=== PATIENT | female | born 1955 | race Two or more races ===

== ENCOUNTER 2022-08-03 04:18 | Day surgery (SDC) | payer OTHER ==
[2022-08-02 14:29] VITALS: BMI 19.8
[2022-08-03] MEDS ORDERED: MIDAZOLAM HCL 2 MG/2 ML SINGLE DOSE VIAL ONE (13:10)
[2022-08-03] MEDS ORDERED: PROPOFOL 20 ML ONE (13:10)
[2022-08-03] MEDS ORDERED: ONDANSETRON 4 MG/2 ML VIAL ONE (13:17)
[2022-08-03] MEDS ORDERED: ceFAZolin SODIUM 1 GM VIAL IVPB ONE (13:20)
[2022-08-03] MEDS ORDERED: ceFAZolin SODIUM 1 GM VIAL ONE (13:21)
[2022-08-03 14:09] VITALS: RESP 20
[2022-08-03] MEDS ORDERED: LACTATED RINGERS SOLUTION 1,000 ML IV SCH (14:15)
[2022-08-03] MEDS ORDERED: ONDANSETRON 4 MG/2 ML VIAL IVPUSH PRN (14:15)
[2022-08-03 15:19] VITALS: BP 98/54; PULSE 70; TEMP 97.4
== END 2022-08-03 15:12 | disposition home or self-care (01) ==
LOC: JASU-SURG 04:18
PROVIDERS: ATTEND Urology
PROC: 0TBB8ZX Excision of Bladder, Via Natural or Artificial Opening Endoscopic, Diagnostic (ICD-10-PCS; principal; 2022-08-03 13:00)
DX: N30.20 Other chronic cystitis without hematuria (principal)
CPT/HCPCS: 88305-TC; 94760